=== PATIENT | female | born 1980 | race Caucasian/White ===

== ENCOUNTER 2020-03-19 09:44 | Emergency (ER) | payer OTHER ==
[~2020-03-19] VITALS: Ht 160 cm; Wt 79.4 kg
[~2020-03-19 09:44] MED LIST: CELEXA10 MG PO; HYDROCODON-ACE1 EAC7 PO; PERCOCET 5-3251 EACH PO; ZOFRAN4 MG PO
[2020-03-19] MEDS ORDERED: LEVO-T25 MCG PO (09:57)
[2020-03-19] MEDS ORDERED: BUTALB-APAP-CA1 EACH PO (10:57)
[2020-03-19] MEDS ORDERED: PHENERGAN 25 MG25 M1 PO (11:29)
[2020-03-19 11:36] VITALS: BP 130/86
== END 2020-03-19 11:36 | disposition home or self-care (01) ==
LOC: M.ERS 09:44
DX: G43.909 Migraine, unspecified, not intractable, without status migrainosus (principal); E03.9 Hypothyroidism, unspecified; Z88.6 Allergy status to analgesic agent; Z88.5 Allergy status to narcotic agent; Z79.899 Other long term (current) drug therapy

== ENCOUNTER 2020-03-20 23:10 | Emergency (ER) | payer OTHER ==
[~2020-03-20] VITALS: Ht 160 cm; Wt 79.4 kg
[~2020-03-20 23:10] MED LIST changes: +BUTALB-APAP-CA1 EACH PO; +LEVO-T25 MCG PO; +PHENERGAN 25 MG25 M1 PO
[2020-03-20 23:50] LABS: ABSOLUTE BASOPHILS 0.1 thou/uL (0.0-0.2); ABSOLUTE EOSINOPHILS 0.2 thou/uL (0.0-0.7); ABSOLUTE LYMPHOCYTES 1.9 thou/uL (0.8-5.3); ABSOLUTE MONOCYTES 0.6 thou/uL (0.0-1.2); ABSOLUTE NEUTROPHILS 7.7 thou/uL (1.6-8.1); BASOPHILS 1.1 %; EOSINOPHILS 1.7 %; HEMATOCRIT 37.9 % (37.0-47.0); HEMOGLOBIN 12.5 gm/dL (12.0-15.0); LYMPHOCYTES 18.2 %; MCH 29.1 pg (26.0-34.0); MCV 88.3 fL (80.0-100.0); MPV 9.2 fl. (7.2-11.1); NUCLEATED RBCS 0 /100WBC; PLATELET COUNT* 321 thou/uL (150-400); RBC 4.29 mil/uL (4.20-5.00); RDW-CV 14.1 % (10.5-14.5); WBC 10.6 thou/uL (4.0-11.0)
[2020-03-20 23:54] LABS: CALCIUM 9.3 mg/dL (8.5-10.1); CREATININE 0.7 mg/dL (0.6-1.3); POTASSIUM 3.7 mmol/L (3.5-5.1)
[2020-03-20 23:58] LABS: ALBUMIN 3.9 g/dL (3.4-5.0); MAGNESIUM 1.8 mg/dL (1.8-2.4); TOTAL BILIRUBIN 0.3 mg/dL (<0.1-1.0)
[2020-03-21] MEDS ORDERED: FLEXERIL PO (02:20)
[2020-03-21] MEDS ORDERED: BACLOFEN 10MG T10 MG PO (02:20)
[2020-03-21 03:00] VITALS: BP 133/56
--- NOTE | 2020-03-21 11:20 | EKG ---
[place] [address] ELECTROCARDIOGRAM REPORT Name: JACKSON SHAIKH [facility] [id number] Admission: 03/20/20 Attend Phys: Discharge: 03/21/20 Date of : 82 Date of Service: 03/20/20 2349 Report #: [id number] THIS REPORT FOR: //name// [facility] ED Test Date: 2020-03-20 Test Time: 23:49:59 Pat Name: JACKSON SHAIKH Department: Room: Gender: [employer]: DEVAN : 1980 Requested By: Belen Wise Order Number: [id number] MD: Gary Chowdary Measurements Intervals [place] Rate: 85 P: 41 NE: 143 QRS: 28 QRSD: 77 T: 26 QT: 385 QTc: 458 Interpretive Statements Sinus rhythm No previous ECG available for comparison Electronically Signed On 03-21-2020 11:20:06 [employer] by Gary Chowdary [email or web address] <ELECTRONICALLY SIGNED> By: Gary Chowdary MD, [facility] 03/21/20 1120 [id number] [id number] Gary Chowdary MD, FACC /EPI
== END 2020-03-21 03:00 | disposition home or self-care (01) ==
LOC: M.ERS 23:10
PROVIDERS: Emergency Medicine
DX: R51.9 Headache, unspecified (principal); Z20.828 Contact with and (suspected) exposure to other viral communicable diseases; M54.2 Cervicalgia; E03.9 Hypothyroidism, unspecified; F17.210 Nicotine dependence, cigarettes, uncomplicated; Z88.5 Allergy status to narcotic agent; Z88.6 Allergy status to analgesic agent

== ENCOUNTER 2020-09-04 22:57 | Emergency (ER) | payer OTHER ==
[~2020-09-04] VITALS: Ht 160 cm; Wt 79.4 kg
[~2020-09-04 22:57] MED LIST changes: +BACLOFEN 10MG T10 MG PO; +FLEXERIL PO
[2020-09-04] MEDS ORDERED: METFORMIN HCL500 M3 PO (23:16)
[2020-09-04 23:28] LABS: URINE BILIRUBIN NEGATIVE (Negative); URINE BLOOD NEGATIVE (Negative); URINE CLARITY CLEAR; URINE COLOR YELLOW; URINE GLUCOSE-RANDOM 3+ (Negative); URINE KETONES NEGATIVE (Negative); URINE LEUKOCYTES-REFLEX NEGATIVE (Negative); URINE NITRITE-REFLEX NEGATIVE (Negative); URINE PROTEIN 1+ (Negative); URINE UROBILINOGEN 0.2 E.U./dl (0.2-1.0)
[2020-09-04 23:48] LABS: ABSOLUTE BASOPHILS 0.1 thou/uL (0.0-0.2); ABSOLUTE EOSINOPHILS 0.1 thou/uL (0.0-0.7); ABSOLUTE LYMPHOCYTES 1.9 thou/uL (0.8-5.3); ABSOLUTE MONOCYTES 0.5 thou/uL (0.0-1.2); ABSOLUTE NEUTROPHILS 11.3 thou/uL (1.6-8.1); BASOPHILS 0.5 %; HEMATOCRIT 37.7 % (37.0-47.0); HEMOGLOBIN 12.7 gm/dL (12.0-15.0); LYMPHOCYTES 13.5 %; MCH 29.2 pg (26.0-34.0); MCHC 33.6 g/dL (28.0-37.0); MCV 86.9 fL (80.0-100.0); MONOCYTES 3.9 %; MPV 8.8 fl. (7.2-11.1); NUCLEATED RBCS 0 /100WBC; PLATELET COUNT* 365 thou/uL (150-400); POLYS 81.1 %; RBC 4.34 mil/uL (4.20-5.00); RDW-CV 14.8 % (10.5-14.5)
[2020-09-05 00:01] LABS: CALCIUM 8.8 mg/dL (8.5-10.1); CREATININE 0.7 mg/dL (0.6-1.3)
[2020-09-05 00:07] LABS: ALBUMIN 4.2 g/dL (3.4-5.0); TOTAL BILIRUBIN 0.4 mg/dL (<0.1-1.0); TOTAL PROTEIN 9.1 g/dL (6.4-8.2)
[2020-09-05] MEDS ORDERED: PERCOCET PO (09:17)
[2020-09-05] MEDS ORDERED: ZOFRAN ODT4 MG DISSOLVE (09:17)
[2020-09-05 09:27] VITALS: BP 132/78
== END 2020-09-05 09:27 | disposition home or self-care (01) ==
LOC: M.ERS 22:57
PROVIDERS: Personal Emergency Response Attendant
DX: N83.8 Other noninflammatory disorders of ovary, fallopian tube and broad ligament (principal); N83.291 Other ovarian cyst, right side; R73.9 Hyperglycemia, unspecified; E03.9 Hypothyroidism, unspecified; R94.5 Abnormal results of liver function studies; Z88.6 Allergy status to analgesic agent; Z88.5 Allergy status to narcotic agent; Z79.899 Other long term (current) drug therapy